=== PATIENT | male | born 1945 | race Caucasian/White ===

== ENCOUNTER 2016-11-22 13:35 | Emergency (ER) | payer OTHER ==
[~2016-11-22] VITALS: Ht 177.8 cm; Wt 110.1 kg
[~2016-11-22 13:35] MED LIST: ALLOPURINOL300 MG PO; AMLODIPINE BESY10 MG PO; ASPIR-LOW81 MG PO; CARDURA4 MG PO; CARVEDILOL12.5 MG PO; CINNAMON500 MG PO; COREG12.5 M1 PO; COUMADIN3 MG PO; DOXAZOSIN MESYLA8 MG PO; ENDOCET 5-3251 EACH PO; FLUTICASONE PRO16 GM BOTH NARES; FUROSEMIDE40 MG PO; GLIPIZIDE5 MG PO; KRILL OIL500 MG PO; LISINOPRIL40 MG PO; LOPRESSOR25 MG PO; LOVENOX100 MG/1 M SC; OMEPRAZOLE40 M1 PO; SYMBICORT60 INHALAT IH; WARFARIN SODIUM5 MG PO; ZANAFLEX2 M1 PO; ZETIA10 MG PO
[2016-11-22] MEDS ORDERED: PREDNISOLONE AC15 ML BOTH EYES (14:21)
[2016-11-22] MEDS ORDERED: VENTOLIN HFA18 GM IH (14:22)
[2016-11-22] MEDS ORDERED: PRAVASTATIN SOD40 MG PO (14:23)
[2016-11-22] MEDS ORDERED: METFORMIN HCL500 MG PO (14:24)
[2016-11-22] MEDS ORDERED: ALBUTEROL0.63 MG/3 IH (14:25)
[2016-11-22] MEDS ORDERED: OXYCODONE HCL10 MG PO (14:25)
[2016-11-22 16:39] VITALS: BP 178/80
== END 2016-11-22 16:39 | disposition home or self-care (01) ==
LOC: EME 13:35
DX: M79.89 Other specified soft tissue disorders (principal); Z86.718 Personal history of other venous thrombosis and embolism; J44.9 Chronic obstructive pulmonary disease, unspecified; J45.909 Unspecified asthma, uncomplicated; I10 Essential (primary) hypertension; E78.5 Hyperlipidemia, unspecified; E11.9 Type 2 diabetes mellitus without complications; Z79.84 Long term (current) use of oral hypoglycemic drugs; Z79.82 Long term (current) use of aspirin; Z95.1 Presence of aortocoronary bypass graft; Z87.891 Personal history of nicotine dependence
CPT/HCPCS: 93971; 99281; 99284

== ENCOUNTER 2017-08-05 18:31 | Emergency (ER) | payer OTHER ==
[~2017-08-05] VITALS: Ht 177.8 cm; Wt 109.0 kg
[~2017-08-05 18:31] MED LIST changes: +ALBUTEROL0.63 MG/3 IH; +METFORMIN HCL500 MG PO; +OXYCODONE HCL10 MG PO; +PRAVASTATIN SOD40 MG PO; +PREDNISOLONE AC15 ML BOTH EYES; +VENTOLIN HFA18 GM IH
[2017-08-05 19:52] LABS: HEMATOCRIT 39.1 % (38.0-50.0); HEMOGLOBIN 13.6 G/DL (12.5-16.6); MCH 34.1 PG (29.0-34.0); MCHC 34.8 G/DL (30.0-36.0); PLATELET COUNT 130 K/uL (156-360); RBC DIS.WIDTH-CV 13.9 % (11.8-14.6); RBC DIS.WIDTH-SD 50.3 % (39-53); RED BLOOD COUNT 3.99 M/uL (4.00-5.50); WHITE BLOOD COUNT 7.7 K/uL (4.1-10.2)
[2017-08-05 20:05] LABS: CHLORIDE 102 mEq/L (99-109); POTASSIUM 3.7 mEq/L (3.7-5.4); SODIUM 141 mEq/L (136-147)
[2017-08-05 20:06] LABS: GLUCOSE 144 mg/dL (70-99)
[2017-08-05 20:10] LABS: CREATININE 0.9 mg/dL (0.6-1.3); GFR ESTIMATE (CALCULATED) > 59 mL/min/ (58.99-99999)
[2017-08-05 20:11] LABS: UREA NITROGEN (BUN) 14 mg/dL (9-23)
[2017-08-05] MEDS ORDERED: ZITHROMAX250 MG PO (20:41)
[2017-08-05] MEDS ORDERED: PREDNISONE50 MG PO (20:41)
[2017-08-05 21:06] VITALS: BP 153/81
== END 2017-08-05 21:12 | disposition home or self-care (01) ==
LOC: EME 18:31
PROVIDERS: Emergency Medicine
DX: J44.1 Chronic obstructive pulmonary disease with (acute) exacerbation (principal); J10.1 Influenza due to other identified influenza virus with other respiratory manifestations; E11.9 Type 2 diabetes mellitus without complications; Z79.84 Long term (current) use of oral hypoglycemic drugs; I25.2 Old myocardial infarction; Z87.891 Personal history of nicotine dependence; K21.9 Gastro-esophageal reflux disease without esophagitis; Z85.828 Personal history of other malignant neoplasm of skin; Z95.1 Presence of aortocoronary bypass graft; Z88.8 Allergy status to other drugs, medicaments and biological substances
CPT/HCPCS: 71046; 80048; 85027; 87502; 94640; 99281; 99285; J7512

== ENCOUNTER 2017-08-16 11:47 | Inpatient (IN) | payer OTHER ==
[~2017-08-16] VITALS: Ht 177.8 cm; Wt 113.1 kg
[~2017-08-16 11:47] MED LIST changes: -PREDNISOLONE AC15 ML BOTH EYES; +PREDNISOLONE AC15 ML LEFT EYE; +PREDNISONE50 MG PO; +ZITHROMAX250 MG PO
[2017-08-16 12:34] LABS: BASOPHIL (%) 0.2 % (0-1); EOSINOPHIL (%) 1.1 % (0-5); EOSINOPHIL COUNT 0.2 K/uL (0-0.3); HEMATOCRIT 36.6 % (38.0-50.0); HEMOGLOBIN 12.3 G/DL (12.5-16.6); IMMATURE GRANULOCYTE (%) 0.5 % (0.0-0.7); LYMPHOCYTE COUNT 2.1 K/uL (1.0-2.8); MCH 33.3 PG (29.0-34.0); MCHC 33.6 G/DL (30.0-36.0); MCV 99.2 FL (86-99); MONOCYTE (%) 9.3 % (3-12); MONOCYTE COUNT 1.2 K/uL (0-0.8); NEUTROPHIL (%) 72.9 % (45-76); NEUTROPHIL COUNT 9.5 K/uL (1.8-6.4); PLATELET COUNT 162 K/uL (156-360); RBC DIS.WIDTH-CV 13.2 % (11.8-14.6); RBC DIS.WIDTH-SD 47.6 % (39-53); RED BLOOD COUNT 3.69 M/uL (4.00-5.50); WHITE BLOOD COUNT 13.1 K/uL (4.1-10.2)
[2017-08-16 12:35] LABS: CARBON DIOXIDE (BICARBONATE) 34.4 MEQ/L (20-31)
[2017-08-16 12:55] LABS: CHLORIDE 102 mEq/L (99-109); POTASSIUM 3.5 mEq/L (3.7-5.4); SODIUM 139 mEq/L (136-147)
[2017-08-16 12:57] LABS: GLUCOSE 148 mg/dL (70-99)
[2017-08-16 13:00] LABS: GFR ESTIMATE (CALCULATED) > 59 mL/min/ (58.99-99999)
[2017-08-16 13:01] LABS: UREA NITROGEN (BUN) 14 mg/dL (9-23)
[2017-08-16 13:06] LABS: TROP-I INTERPRETATION NEGATIVE; TROPONIN-I 0.05 ng/mL (0.0-0.30)
[2017-08-16] MEDS ORDERED: ATORVASTATIN CA40 MG PO (14:53)
[2017-08-16] MEDS ORDERED: GLIMEPIRIDE4 MG PO (14:53)
[2017-08-16 18:34] VITALS: BP 157/84
[2017-08-16 19:18] LABS: TROP-I INTERPRETATION NEGATIVE; TROPONIN-I 0.06 ng/mL (0.0-0.30)
[2017-08-16 21:52] LABS: BASE EXCESS 6.3 mEq/L (-3 to +3); BICARBONATE 30.6 mEq/L (22-26); CARBOXY HGB 1.2 % (0-5); COMMENTS - BLOOD GASES C+; DEVICE NCHH; O2 FLOW 15 L/MIN; PCO2 42 mm Hg (35-45); PO2 76 mm Hg (80-100); SITE LB; TOTAL RESP RATE 18 resp/min; pH 7.47 (7.35-7.45)
[2017-08-17] VITALS: BP 132/65
[2017-08-17 04:00] VITALS: BP 141/72
[2017-08-17 05:57] LABS: BASOPHIL (%) 0.1 % (0-1); EOSINOPHIL (%) 0 % (0-5); HEMATOCRIT 33.5 % (38.0-50.0); HEMOGLOBIN 11.4 G/DL (12.5-16.6); IMMATURE GRANULOCYTE (%) 0.5 % (0.0-0.7); LYMPHOCYTE (%) 7.7 % (15-42); LYMPHOCYTE COUNT 1.3 K/uL (1.0-2.8); MCH 33.4 PG (29.0-34.0); MCV 98.2 FL (86-99); MONOCYTE (%) 5.1 % (3-12); MONOCYTE COUNT 0.8 K/uL (0-0.8); NEUTROPHIL (%) 86.6 % (45-76); NEUTROPHIL COUNT 14.2 K/uL (1.8-6.4); PLATELET COUNT 177 K/uL (156-360); RBC DIS.WIDTH-CV 13.1 % (11.8-14.6); RBC DIS.WIDTH-SD 46.9 % (39-53); RED BLOOD COUNT 3.41 M/uL (4.00-5.50); WHITE BLOOD COUNT 16.4 K/uL (4.1-10.2)
[2017-08-17 06:30] LABS: CHLORIDE 101 MEQ/L (99-109); CREATININE 1.1 MG/DL (0.6-1.3); GFR ESTIMATE (CALCULATED) > 59 mL/min/ (58.99-99999); GLUCOSE 195 mg/dL (70-99); POTASSIUM 3.7 MEQ/L (3.7-5.4); SODIUM 142 MEQ/L (136-147)
[2017-08-17 06:31] LABS: UREA NITROGEN (BUN) 22 mg/dL (9-23)
[2017-08-17 07:59] VITALS: BP 150/68
[2017-08-17 16:00] VITALS: BP 149/73
[2017-08-17 19:37] VITALS: BP 138/64
[2017-08-17 23:50] VITALS: BP 152/70
[2017-08-18 06:07] LABS: BASOPHIL (%) 0.2 % (0-1); EOSINOPHIL (%) 0 % (0-5); HEMATOCRIT 36.7 % (38.0-50.0); HEMOGLOBIN 12.2 G/DL (12.5-16.6); IMMATURE GRANULOCYTE (%) 0.8 % (0.0-0.7); LYMPHOCYTE (%) 6.2 % (15-42); LYMPHOCYTE COUNT 1.2 K/uL (1.0-2.8); MCH 32.3 PG (29.0-34.0); MCHC 33.2 G/DL (30.0-36.0); MCV 97.1 FL (86-99); MONOCYTE COUNT 0.4 K/uL (0-0.8); NEUTROPHIL (%) 90.8 % (45-76); NEUTROPHIL COUNT 17.7 K/uL (1.8-6.4); PLATELET COUNT 208 K/uL (156-360); RBC DIS.WIDTH-SD 46.5 % (39-53); RED BLOOD COUNT 3.78 M/uL (4.00-5.50); WHITE BLOOD COUNT 19.4 K/uL (4.1-10.2)
[2017-08-18 06:33] LABS: CHLORIDE 101 MEQ/L (99-109); GFR ESTIMATE (CALCULATED) > 59 mL/min/ (58.99-99999); GLUCOSE 188 mg/dL (70-99); MAGNESIUM 1.6 mg/dl (1.3-2.7); POTASSIUM 3.5 MEQ/L (3.7-5.4); SODIUM 141 MEQ/L (136-147); UREA NITROGEN (BUN) 22 mg/dL (9-23)
[2017-08-18 07:25] VITALS: BP 144/74
[2017-08-18 11:02] VITALS: BP 131/63; BP 181/79
[2017-08-18 15:21] VITALS: BP 123/58
[2017-08-18 19:05] VITALS: BP 135/62
[2017-08-19] VITALS: BP 142/72; BP 151/70
[2017-08-19 03:43] VITALS: BP 156/71
[2017-08-19 07:13] VITALS: BP 141/85
[2017-08-19] MEDS ORDERED: CEFDINIR300 MG PO (09:38)
[2017-08-19] MEDS ORDERED: PREDNISONE5 M1 PO (09:45)
[2017-08-19 11:23] VITALS: BP 130/60
== END 2017-08-19 13:17 | disposition home health service (06) | DRG 193 ==
LOC: EME 11:47 → EDOF 15:10 → ENRESERV 15:18 → 5SOUTH 18:18 → ENPENDDIS 08-19 11:32 → 5SOUTH 08-19 13:17
PROVIDERS: Emergency Medicine; Internal Medicine; Physician Assistant
DX: J18.9 Pneumonia, unspecified organism (principal); J96.01 Acute respiratory failure with hypoxia; J44.1 Chronic obstructive pulmonary disease with (acute) exacerbation; J44.0 Chronic obstructive pulmonary disease with (acute) lower respiratory infection; I25.10 Atherosclerotic heart disease of native coronary artery without angina pectoris; I11.0 Hypertensive heart disease with heart failure; I50.9 Heart failure, unspecified; E66.9 Obesity, unspecified; E87.6 Hypokalemia; D64.9 Anemia, unspecified; E11.9 Type 2 diabetes mellitus without complications; K21.9 Gastro-esophageal reflux disease without esophagitis; J98.11 Atelectasis; Z86.718 Personal history of other venous thrombosis and embolism; Z86.711 Personal history of pulmonary embolism; Z95.1 Presence of aortocoronary bypass graft; Z87.891 Personal history of nicotine dependence; Z79.84 Long term (current) use of oral hypoglycemic drugs; Z79.82 Long term (current) use of aspirin; Z79.899 Other long term (current) drug therapy; Z80.9 Family history of malignant neoplasm, unspecified; Z82.49 Family history of ischemic heart disease and other diseases of the circulatory system; I25.2 Old myocardial infarction
CPT/HCPCS: 36600; 71045; 71046; 71275; 80048; 82803; 82948; 83605; 83735; 83880; 84484; 85025; 85379; 87040; 87449; 93005; 94640; 94640 76; 94760; 94799; 99202; 99281; 99285; J0456; J0696; J1650; J1815; J1940; J2270; J2920; J2930; J7030